=== PATIENT | female | born 1985 | race Caucasian/White ===

== ENCOUNTER 2017-11-11 19:25 | Emergency (ER) | payer BC ==
[~2017-11-11] VITALS: Ht 160 cm; Wt 72.7 kg
[2017-11-11 19:32] VITALS: TEMP 97.5
[2017-11-11] MEDS ORDERED: DICLEGIS (19:35)
[2017-11-11] MEDS ORDERED: PRENATAL (20:35)
[2017-11-11 21:14] LABS: BASO % 0.2 % (0.0-2.0); EOS # 0.1 (0.0-0.7); EOS % 0.4 % (0-4.0); GRAN # 13.2 (1.4-6.5); GRAN % 84.4 % (42.2-75.2); HEMOGLOBIN 12.3 g/dl (12.5-16.0); LYMPH # 1.5 (1.2-3.4); LYMPH % 9.6 % (20.0-51.0); MEAN CELL VOLUME 81 fl (80.0-100.0); MEAN CORPUSCULAR HEMOGLOBIN 27 pg (27.0-31.0); MEAN CORPUSCULAR HGB CONC 33 g/dl (33.0-37.0); MEAN PLATELET VOLUME 10.9 fl (7.4-10.4); MONO # 0.8 (0.1-0.6); MONO % 4.8 % (1.7-9.3); PLATELET COUNT 245 K/mm3 (130-400); RED BLOOD COUNT 4.56 M/mm3 (4.10-5.30); REDCELL DISTRIBUTION WIDTH-CV 12.7 % (11.5-14.5)
[2017-11-11 21:15] LABS: HEMATOCRIT 36.8 % (37.0-47.0)
[2017-11-12 02:28] VITALS: BP 113/62; PULSE 97
== END 2017-11-12 02:32 | disposition home or self-care (01) ==
LOC: COL.ER 19:25
PROVIDERS: Family Medicine
DX: O20.0 Threatened abortion (principal); Z3A.13 13 weeks gestation of pregnancy
CPT/HCPCS: J7030; J7040

== ENCOUNTER 2018-03-09 11:51 | Outpatient (CLI) | payer BC ==
[~2018-03-09] VITALS: Ht 160 cm; Wt 84.8 kg
[~2018-03-09 11:51] MED LIST: DICLEGIS; PRENATAL
== END 2018-03-09 13:25 | disposition home or self-care (01) ==
LOC: LDRO 11:51
DX: O36.8130 Decreased fetal movements, third trimester, not applicable or unspecified (principal); Z3A.29 29 weeks gestation of pregnancy; Z87.59 Personal history of other complications of pregnancy, childbirth and the puerperium

== ENCOUNTER → 2018-03-11 | Outpatient (CLI) | payer BC | LOC: SUN.DIA 10:01 | DX: O24.419 Gestational diabetes mellitus in pregnancy, unspecified control (principal) | CPT/HCPCS: G0108 ==

== ENCOUNTER → 2018-04-06 | Outpatient (CLI) | payer BC ==
[~2018-04-06] MED LIST changes: +EZFE 200200 MG PO
== END ==
LOC: SUN.DIA 08:44
DX: O24.419 Gestational diabetes mellitus in pregnancy, unspecified control (principal); Z3A.34 34 weeks gestation of pregnancy
CPT/HCPCS: G0108

== ENCOUNTER 2018-04-23 09:25 | Outpatient (RCR) | payer BC ==
[~2018-04-23] VITALS: Ht 160 cm; Wt 86.6 kg
[2018-04-26] MEDS ORDERED: NATURAL IRON65 MG (11:35)
[2018-04-28] MEDS ORDERED: MOTRIN 800800 MG/TAB PO (07:59)
== END 2018-06-29 | disposition still patient (30) ==
LOC: LDR
DX: O30.093 Twin pregnancy, unable to determine number of placenta and number of amniotic sacs, third trimester (principal); O13.3 Gestational [pregnancy-induced] hypertension without significant proteinuria, third trimester; O24.410 Gestational diabetes mellitus in pregnancy, diet controlled; Z3A.32 32 weeks gestation of pregnancy; Z87.59 Personal history of other complications of pregnancy, childbirth and the puerperium
CPT/HCPCS: OP